=== PATIENT | male | born 1960 | race Caucasian/White ===

== ENCOUNTER 2018-01-20 21:18 | Inpatient (IN) | payer MEDICAID ==
[~2018-01-20] VITALS: Ht 167.6 cm; Wt 101.6 kg
[~2018-01-20 21:18] MED LIST: BISACODYL; FURO-152 PO; SPIRONOLACTONE
[2018-01-20] MEDS ORDERED: FUROSEMIDE 20MG/2ML VIAL IVP ONE (21:45)
[2018-01-20 23:19] LABS: BASOPHILS % 0.4 % (0.0-2.0); EOSINOPHILS % 1.1 % (0.0-5.0); HEMATOCRIT. 37.3 % (42.0-52.0); HEMOGLOBIN. 13.1 g/dL (14.0-18.0); LYMPHOCYTES % 39.2 % (20.0-50.0); MEAN CORPUSCULAR HEMOGLOBIN 34.7 pg (28.0-32.0); MEAN CORPUSCULAR VOLUME 98.4 fL (80.0-94.0); MEAN PLATELET VOLUME 8.1 fl (7.4-10.4); NEUTROPHILS % 48.3 % (40.0-76.0); RED BLOOD CELL COUNT 3.79 mill/uL (4.7-6.1); RED CELL DISTRIBUTION WIDTH 15.4 % (11.6-14.6)
[2018-01-20 23:21] LABS: CHLORIDE 108 mEq/L (98-107)
[2018-01-20 23:25] LABS: INR 1.9
[2018-01-20 23:26] LABS: PLATELET 35 x1000/uL (130-400)
[2018-01-20] MEDS ORDERED: NA PHOS,M-B/NA PHOS,DI-BA ENEMA 118ML PR PRN (23:45)
[2018-01-20] MEDS ORDERED: LORAZEPAM 2MG/ML CPJ IV PRN (23:45)
[2018-01-20] MEDS ORDERED: DIPHENHYDRAMINE 50MG/ML VIAL IV PRN (23:45)
[2018-01-20] MEDS ORDERED: IPRATROPIUM/ALBUTEROL 0.5-3(2.5)MG/3ML NEB INH PRN (23:45)
[2018-01-20] MEDS ORDERED: MAGNESIUM/ALUMINUM HYDROXIDE/SIMETHICONE 30ML UDC PO PRN (23:45)
[2018-01-20] MEDS ORDERED: ONDANSETRON HCL 4MG/2ML VIAL IV PRN (23:45)
[2018-01-20] MEDS ORDERED: CLONIDINE 0.1MG TABLET PO PRN (23:45)
[2018-01-20] MEDS ORDERED: DOCUSATE SODIUM 100MG CAPSULE PO PRN (23:45)
[2018-01-20] MEDS ORDERED: HYDROCODONE/ACETAMINOPHEN 5/325MG TABLET PO PRN (23:45)
[2018-01-20] MEDS ORDERED: ACETAMINOPHEN 650MG SUPP PR PRN (23:45)
[2018-01-20] MEDS ORDERED: GUAIFENESIN 200MG/10ML SUGAR FREE UDC PO PRN (23:45)
[2018-01-20] MEDS ORDERED: ACETAMINOPHEN 325MG TABLET PO PRN (23:45)
[2018-01-20] MEDS ORDERED: ACETAMINOPHEN 650MG/20.3ML UDC GT PRN (23:45)
[2018-01-21] VITALS (7 sets, daily range): BP systolic 111–155; BP diastolic 72–95
[2018-01-21] MEDS ORDERED: POTASSIUM CHLORIDE INJ 40 MEQ in DEXT 5% WATER 500 ML IV NR ×2
[2018-01-21] MEDS ORDERED: POTASSIUM CHLORIDE 20MEQ TABLET SR PO ONE
[2018-01-21] MEDS ORDERED: ALBUTEROL (0.083%) 2.5MG/3ML NEB HHN SCH
[2018-01-21] MEDS: HYDROCODONE/ACETAMINOPHEN 10/325MG TABLET PO PRN (01:33)
[2018-01-21] MEDS ORDERED: TAMS-11 PO (02:08)
[2018-01-21] MEDS ORDERED: SPIR25TA PO (02:08)
[2018-01-21 04:27] LABS: CLARITY URINE CLEAR (CLEAR); COLOR URINE YELLOW (YELLOW); KETONES URINE NEGATIVE (NEGATIVE); LEUKOCYTE ESTERASE URINE NEGATIVE (NEGATIVE); NITRITE URINE NEGATIVE (NEGATIVE); OCCULT BLOOD URINE 2+ (NEGATIVE); PH URINE 7.5 (4.5-8.0); PROTEIN URINE NEGATIVE (NEGATIVE); SPECIFIC GRAVITY URINE 1.007 (1.005-1.030)
[2018-01-21] MEDS: SODIUM CHLORIDE 0.9% INJ 3ML FLUSH IVF SCH ×3 (05:33→21:25)
[2018-01-21 05:45] LABS: *AMPHETAMINES SCREEN URINE NEGATIVE (NEGATIVE); *BARBITURATES SCREEN URINE NEGATIVE (NEGATIVE)
[2018-01-21 05:46] LABS: *BENZODIAZEPINES SCREEN URINE NEGATIVE (NEGATIVE); *COCAINE SCREEN URINE NEGATIVE (NEGATIVE); METHADONE URINE SCREEN NEGATIVE (NEGATIVE); OPIATES URINE SCREEN PRESUMTIVE POSITIVE (NEGATIVE)
[2018-01-21 05:47] LABS: CANNABINOID URINE SCREEN NEGATIVE (NEGATIVE); PHENCYCLIDINE URINE SCREEN NEGATIVE (NEGATIVE)
[2018-01-21 07:15] LABS: BASOPHILS % 0.6 % (0.0-2.0); EOSINOPHILS % 3.9 % (0.0-5.0); HEMATOCRIT. 33.1 % (42.0-52.0); HEMOGLOBIN. 11.9 g/dL (14.0-18.0); LYMPHOCYTES % 49.4 % (20.0-50.0); MEAN CORPUSCULAR HEMOGLOBIN 35.3 pg (28.0-32.0); MEAN PLATELET VOLUME 7.4 fl (7.4-10.4); MONOCYTES % 11.8 % (2.0-8.0); NEUTROPHILS % 34.3 % (40.0-76.0); RED BLOOD CELL COUNT 3.38 mill/uL (4.7-6.1)
[2018-01-21 07:27] LABS: CHLORIDE 108 mEq/L (98-107)
[2018-01-21 07:51] LABS: LDL CHOLESTEROL 53 mg/dL (5-100)
[2018-01-21 07:53] LABS: HDL CHOLESTEROL 21 mg/dL (40-59)
[2018-01-21] MEDS: IPRATROPIUM/ALBUTEROL 0.5-3(2.5)MG/3ML NEB INH SCH ×3 (08:26→21:20)
[2018-01-21 08:40] LABS: PLATELET 27 x1000/uL (130-400)
[2018-01-21] MEDS ORDERED: FAMOTIDINE 20MG/2ML VIAL IV SCH (09:00)
[2018-01-21] MEDS: FUROSEMIDE 40MG/4ML VIAL IV SCH (09:23)
[2018-01-21] MEDS: POTASSIUM CHLORIDE 20MEQ TABLET SR PO PRN (09:24)
[2018-01-21] MEDS: THIAMINE HCL 100MG TABLET PO SCH (09:24)
[2018-01-21] MEDS: FOLIC ACID 1MG TABLET PO SCH (09:24)
[2018-01-21] MEDS ORDERED: PNEUMOCOCCAL 23-VAL P-SAC VAC 0.5 ML IM ONE (10:00)
[2018-01-21 10:35] LABS: BG BASE EXCESS -1.8 mmol/L (-2.0-2.0); BG CARBOXYHEMOGLOBIN 1.2 % (0.5-1.5); BG DEOXYHEMOGLOBIN 6.3 % (0.0-5.0); BG HCO3 ACT 21.9 mmol/L (22.0-26.0); BG METHEMOGLOBIN 0.3 % (0.0-1.5); BG OXYGEN SATURATION 93.6 % (92.0-98.5); BG OXYHEMOGLOBIN 92.2 % (94.0-97.0); BG PCO2 34.2 mmHg (35.0-45.0); BG PH 7.424 (7.350-7.450); BG PO2 73.5 mmHg (75.0-100.0); BG SAMPLE SITE LEFT RADIAL; BG TOTAL HEMOGLOBIN 13.3 g/dL (12.0-18.0); BG VENT MODE NASAL CANNULA
[2018-01-21 12:37] LABS: PROTHROMBIN TIME 19.9 sec (9.1-11.1)
[2018-01-21] MEDS ORDERED: PHYTONADIONE 10MG/ML AMP SUBCUT NR (16:00)
[2018-01-21] MEDS ORDERED: FUROSEMIDE 40MG/4ML VIAL IVP NR (16:00)
[2018-01-21] MEDS: PANTOPRAZOLE SODIUM 40 MG/VIAL IV SCH (17:06)
[2018-01-21 19:57] LABS: HEPATITIS B SURFACE ANTIGEN NEGATIVE
[2018-01-21 20:25] LABS: HEPATITIS B CORE AB IGM NEGATIVE
[2018-01-21 20:26] LABS: HEPATITIS A AB IGM NEGATIVE (NEGATIVE)
[2018-01-22] VITALS (10 sets, daily range): BP systolic 108–148; BP diastolic 58–83
[2018-01-22] MEDS: IPRATROPIUM/ALBUTEROL 0.5-3(2.5)MG/3ML NEB INH SCH ×4 (02:49→20:27)
[2018-01-22] MEDS: SODIUM CHLORIDE 0.9% INJ 3ML FLUSH IVF SCH ×2 (05:35→14:24)
[2018-01-22] MEDS: THIAMINE HCL 100MG TABLET PO SCH (07:52)
[2018-01-22] MEDS: FOLIC ACID 1MG TABLET PO SCH (07:52)
[2018-01-22] MEDS: HYDROCODONE/ACETAMINOPHEN 10/325MG TABLET PO PRN (08:21)
[2018-01-22] MEDS: PANTOPRAZOLE SODIUM 40 MG/VIAL IV SCH (08:21)
[2018-01-22] MEDS: FUROSEMIDE 40MG/4ML VIAL IV SCH (08:21)
[2018-01-22] MEDS ORDERED: FUROSEMIDE 40MG/4ML VIAL IVP SCH (09:00)
[2018-01-22 10:36] LABS: HEMATOCRIT 35.5 % (42.0-52.0); HEMOGLOBIN 12.6 g/dL (14.0-18.0); MEAN CORPUSCULAR HEMOGLOBIN 35.1 pg (28.0-32.0); MEAN CORPUSCULAR VOLUME 98.9 fL (80.0-94.0); RED BLOOD CELL COUNT 3.59 mill/uL (4.7-6.1); RED CELL DISTRIBUTION WIDTH 15.1 % (11.6-14.6)
[2018-01-22 10:41] LABS: PLATELET 26 x1000/uL (130-400)
[2018-01-22 10:44] LABS: INR 2.1; PROTHROMBIN TIME 20.6 sec (9.1-11.1)
[2018-01-22 10:52] LABS: CHLORIDE 102 mEq/L (98-107)
[2018-01-22] MEDS: PIPERACILLIN/TAZ 3.375G PREMIX 50 ML IV SCH ×2 (16:17→20:13)
[2018-01-22 20:16] LABS: AMMONIA 150 uMol/L (<32)
[2018-01-23] VITALS: BP 108/71
[2018-01-23] MEDS: SODIUM CHLORIDE 0.9% INJ 3ML FLUSH IVF SCH ×3 (00:01→14:00)
[2018-01-23 00:29] LABS: HEMATOCRIT 34.7 % (42.0-52.0); HEMOGLOBIN 12.2 g/dL (14.0-18.0)
[2018-01-23 00:56] LABS: PROTHROMBIN TIME 19.9 sec (9.1-11.1)
[2018-01-23] MEDS: IPRATROPIUM/ALBUTEROL 0.5-3(2.5)MG/3ML NEB INH SCH ×3 (01:01→14:30)
[2018-01-23 04:00] VITALS: BP 104/74
[2018-01-23] MEDS: POTASSIUM CHLORIDE 20MEQ TABLET SR PO PRN (04:40)
[2018-01-23] MEDS: HYDROCODONE/ACETAMINOPHEN 10/325MG TABLET PO PRN (04:40)
[2018-01-23] MEDS: PIPERACILLIN/TAZ 3.375G PREMIX 50 ML IV SCH ×3 (06:01→15:05)
[2018-01-23 08:00] VITALS: BP 107/60
[2018-01-23] MEDS: FUROSEMIDE 40MG/4ML VIAL IV SCH (08:55)
[2018-01-23] MEDS: THIAMINE HCL 100MG TABLET PO SCH (08:55)
[2018-01-23] MEDS: FOLIC ACID 1MG TABLET PO SCH (08:55)
[2018-01-23] MEDS: PANTOPRAZOLE SODIUM 40 MG/VIAL IV SCH (08:55)
[2018-01-23 12:00] VITALS: BP 107/56
[2018-01-23 16:00] VITALS: BP 115/63
[2018-01-23 17:51] VITALS: BP 120/66
[2018-01-23] MEDS ORDERED: LACTULOSE 20G/30ML UDC PO SCH (22:00)
== END 2018-01-23 19:56 | disposition home or self-care (01) | DRG 816 ==
LOC: ER 21:18 → 5WST 23:35 → ENRESERV 23:51 → EDBEDREQ 23:58
PROVIDERS: ADMIT Family Medicine; ATTEND Family Medicine
PROC: 30233R1 Transfusion of Nonautologous Platelets into Peripheral Vein, Percutaneous Approach (ICD-10-PCS; principal; 2018-01-22)
DX: T51.0X1A Toxic effect of ethanol, accidental (unintentional), initial encounter (principal); J96.00 Acute respiratory failure, unspecified whether with hypoxia or hypercapnia; E43 Unspecified severe protein-calorie malnutrition; I50.33 Acute on chronic diastolic (congestive) heart failure; D61.818 Other pancytopenia; K83.0 Cholangitis; D68.9 Coagulation defect, unspecified; K29.20 Alcoholic gastritis without bleeding; D69.6 Thrombocytopenia, unspecified; E83.51 Hypocalcemia; E87.8 Other disorders of electrolyte and fluid balance, not elsewhere classified; I11.0 Hypertensive heart disease with heart failure; K76.6 Portal hypertension; R16.1 Splenomegaly, not elsewhere classified; K70.9 Alcoholic liver disease, unspecified; E87.6 Hypokalemia; F17.210 Nicotine dependence, cigarettes, uncomplicated; E78.5 Hyperlipidemia, unspecified; Z60.2 Problems related to living alone; I85.00 Esophageal varices without bleeding; R73.9 Hyperglycemia, unspecified; R74.0 Nonspecific elevation of levels of transaminase and lactic acid dehydrogenase [LDH]; K80.61 Calculus of gallbladder and bile duct with cholecystitis, unspecified, with obstruction; K70.30 Alcoholic cirrhosis of liver without ascites; Z68.36 Body mass index [BMI] 36.0-36.9, adult; Z79.899 Other long term (current) drug therapy; Y92.89 Other specified places as the place of occurrence of the external cause
CPT/HCPCS: 36415; 36600; 70551; 71045; 71250; 74181; 76700; 80053; 80061; 80076; 80305; 81003; 82140; 82375; 82805; 83690; 83880; 84484; 85014; 85018; 85025; 85027; 85049; 85384; 85610; 86705; 86709; 86803; 86850; 86900; 87040; 87340; 90732; 93005; 93306; 94640; 96374; 99285; C9113; G0482; J1940; J2405; J2543; J3430; J3480; J3490; J7050; J7060; J7620; P9034

== ENCOUNTER 2018-05-04 15:43 | Inpatient (IN) | payer OTHER, MEDICAID ==
[~2018-05-04] VITALS: Ht 165.1 cm; Wt 107.0 kg
[~2018-05-04 15:43] MED LIST changes: -BISACODYL; +SPIR25TA PO; -SPIRONOLACTONE; +TAMS-11 PO
[2018-05-04 16:53] LABS: HEMATOCRIT. 41.9 % (42.0-52.0); HEMOGLOBIN. 14.4 g/dL (14.0-18.0); MEAN CORPUSCULAR HEMOGLOBIN 34.4 pg (28.0-32.0); MEAN CORPUSCULAR VOLUME 100.6 fL (80.0-94.0); MEAN PLATELET VOLUME 8.7 fl (7.4-10.4); RED BLOOD CELL COUNT 4.17 mill/uL (4.7-6.1); RED CELL DISTRIBUTION WIDTH 17.5 % (11.6-14.6)
[2018-05-04 16:56] LABS: PLATELET 26 x1000/uL (130-400)
[2018-05-04 17:00] LABS: CHLORIDE 92 mEq/L (98-107)
[2018-05-04] MEDS ORDERED: FENTANYL CITRATE/PF 50MCG/ML 2ML VIAL IV ONE (18:00)
[2018-05-04] MEDS ORDERED: ONDANSETRON HCL 4MG/2ML INJ IV ONE (18:00)
[2018-05-04 18:27] LABS: NUCLEATED RED BLOOD CELLS 1 /100 WBC
[2018-05-04 18:28] LABS: PLATELET ESTIMATE MARKEDLY DECREASED
[2018-05-04 19:15] LABS: CLARITY URINE TURBID (CLEAR); COLOR URINE ORANGE (YELLOW); KETONES URINE NEGATIVE (NEGATIVE); LEUKOCYTE ESTERASE URINE 2+ (NEGATIVE); NITRITE URINE POSITIVE (NEGATIVE); OCCULT BLOOD URINE 2+ (NEGATIVE); PROTEIN URINE TRACE (NEGATIVE); SPECIFIC GRAVITY URINE 1.021 (1.005-1.030)
[2018-05-04] MEDS ORDERED: LEVOFLOXACIN 750MG PREMIX 150 ML IV NR (19:15)
[2018-05-05] VITALS (16 sets, daily range): BP systolic 59–117; BP diastolic 40–68
[2018-05-05] MEDS ORDERED: MAGNESIUM/ALUMINUM HYDROXIDE/SIMETHICONE 30ML UDC PO PRN (00:15)
[2018-05-05] MEDS ORDERED: MVI, ADULT NO.1 10 ML, FOLIC ACID 1 MG, THIAMINE HCL 100 MG in SODIUM CHLORIDE 0.9% 1,0... IV SCH ×4 (04:00)
[2018-05-05] MEDS: LACTULOSE 20G/30ML UDC PO SCH ×3 (06:41→21:42)
[2018-05-05] MEDS ORDERED: FUROSEMIDE 40MG/4ML VIAL IVP SCH (10:15)
[2018-05-05] MEDS ORDERED: LORAZEPAM 2MG/ML CPJ IV NR (11:30)
[2018-05-05] MEDS ORDERED: CHLORDIAZEPOXIDE 25MG CAPSULE PO PRN (12:00)
[2018-05-05] MEDS ORDERED: VANCOMYCIN 1 G PREMIX 200 ML IV SCH (12:00)
[2018-05-05] MEDS: MIDODRINE HCL 2.5MG TABLET PO SCH ×2 (13:00→17:40)
[2018-05-05] MEDS ORDERED: VANCOMYCIN 2,000 MG in DEXT 5% WATER 500 ML IV SCH (14:00)
[2018-05-05] MEDS ORDERED: CEFTRIAXONE 1 G PREMIX 50 ML IV SCH (14:00)
[2018-05-05] MEDS: MVI, ADULT NO.1 10 ML, FOLIC ACID 1 MG, THIAMINE HCL 100 MG in DEXT 5%/0.9% NACL 1,000 ML IV SCH ×4 (14:07)
[2018-05-05] MEDS: CEFTRIAXONE 1 G PREMIX 50 ML IV SCH (17:42)
[2018-05-06] VITALS (23 sets, daily range): BP systolic 94–116; BP diastolic 49–76
[2018-05-06] MEDS: LACTULOSE 20G/30ML UDC PO SCH ×3 (05:39→21:54)
[2018-05-06 06:45] LABS: HEMATOCRIT. 40.8 % (42.0-52.0); MEAN CORPUSCULAR HEMOGLOBIN 34.3 pg (28.0-32.0); MEAN CORPUSCULAR VOLUME 99.7 fL (80.0-94.0)
[2018-05-06 06:48] LABS: CHLORIDE 96 mEq/L (98-107)
[2018-05-06 06:54] LABS: PHOSPHORUS 2.2 mg/dL (2.5-4.9)
[2018-05-06] MEDS: MIDODRINE HCL 2.5MG TABLET PO SCH ×3 (08:51→17:54)
[2018-05-06] MEDS ORDERED: VANCOMYCIN 1250MG in DEXTROSE 5% WATER 250ML IV NR (10:00)
[2018-05-06 10:50] LABS: PLATELET 27 x1000/uL (130-400); PLATELET ESTIMATE MARKEDLY DECREASED
[2018-05-06] MEDS ORDERED: POTASSIUM PHOS,M-BASIC-D-BASIC 20 MMOL in SODIUM CHLORIDE 0.9% 250 ML IV SCH (13:30)
[2018-05-06] MEDS ORDERED: CALCIUM GLUCONATE 1,000 MG in DEXTROSE 5% WATER 50 ML IV SCH (13:30)
[2018-05-06] MEDS: MVI, ADULT NO.1 10 ML, FOLIC ACID 1 MG, THIAMINE HCL 100 MG in DEXT 5%/0.9% NACL 1,000 ML IV SCH ×4 (15:05)
[2018-05-06] MEDS: ERGOCALCIFEROL 50000UNITS CAPSULE PO SCH (15:08)
[2018-05-06] MEDS: CEFTRIAXONE 1 G PREMIX 50 ML IV SCH (17:53)
[2018-05-06] MEDS ORDERED: CHLORDIAZEPOXIDE 25MG CAPSULE PO PRN (20:00)
[2018-05-07] VITALS (26 sets, daily range): BP systolic 99–132; BP diastolic 60–95
[2018-05-07] MEDS: LACTULOSE 20G/30ML UDC PO SCH ×4 (06:08→23:34)
[2018-05-07 06:25] LABS: HEMOGLOBIN. 12.3 g/dL (14.0-18.0); MEAN CORPUSCULAR HEMOGLOBIN 34.7 pg (28.0-32.0); MEAN CORPUSCULAR VOLUME 98.9 fL (80.0-94.0); MEAN PLATELET VOLUME 8.7 fl (7.4-10.4); RED BLOOD CELL COUNT 3.54 mill/uL (4.7-6.1); RED CELL DISTRIBUTION WIDTH 16.9 % (11.6-14.6)
[2018-05-07 06:27] LABS: CHLORIDE 99 mEq/L (98-107)
[2018-05-07 06:33] LABS: INR 2.2; PROTHROMBIN TIME 22.1 sec (9.1-11.1)
[2018-05-07 06:36] LABS: PHOSPHORUS 3.7 mg/dL (2.5-4.9)
[2018-05-07 06:51] LABS: PLATELET 44 x1000/uL (130-400)
[2018-05-07] MEDS ORDERED: PHYTONADIONE 10MG/ML AMP SUBCUT NR (09:15)
[2018-05-07] MEDS: MIDODRINE HCL 2.5MG TABLET PO SCH ×3 (09:43→17:26)
[2018-05-07] MEDS ORDERED: MVI, ADULT NO.1 10 ML, FOLIC ACID 1 MG, THIAMINE HCL 100 MG in DEXT 5%/0.9% NACL 1,000 ML IV SCH ×4 (10:00)
[2018-05-07] MEDS ORDERED: CALCIUM GLUCONATE 1,000 MG in SODIUM CHLORIDE 0.9% 100 ML IV NR (11:00)
[2018-05-07] MEDS ORDERED: CHLORDIAZEPOXIDE 25MG CAPSULE PO PRN (12:00)
[2018-05-07] MEDS: MVI, ADULT NO.1 10 ML, FOLIC ACID 1 MG, THIAMINE HCL 100 MG in DEXT 5%/0.9% NACL 1,000 ML IV SCH ×4 (13:39)
[2018-05-07 14:11] LABS: PLATELET ESTIMATE MARKEDLY DECREASED
[2018-05-07] MEDS: CALCIUM CARBONATE 1250MG TABLET (500MG ELEMENTAL CALCIUM) PO SCH (17:26)
[2018-05-07] MEDS: CEFTRIAXONE 1 G PREMIX 50 ML IV SCH (17:26)
[2018-05-08] VITALS (16 sets, daily range): BP systolic 105–136; BP diastolic 60–88
[2018-05-08] MEDS: LACTULOSE 20G/30ML UDC PO SCH ×5 (06:00→23:25)
[2018-05-08 06:47] LABS: CHLORIDE 101 mEq/L (98-107)
[2018-05-08 06:50] LABS: HEMATOCRIT. 34.7 % (42.0-52.0); HEMOGLOBIN. 12.2 g/dL (14.0-18.0); MEAN CORPUSCULAR HEMOGLOBIN 35.1 pg (28.0-32.0); MEAN CORPUSCULAR VOLUME 99.8 fL (80.0-94.0); MEAN PLATELET VOLUME 8.8 fl (7.4-10.4); RED BLOOD CELL COUNT 3.48 mill/uL (4.7-6.1); RED CELL DISTRIBUTION WIDTH 17.6 % (11.6-14.6)
[2018-05-08 06:52] LABS: PHOSPHORUS 4.2 mg/dL (2.5-4.9)
[2018-05-08 07:14] LABS: PLATELET 48 x1000/uL (130-400)
[2018-05-08] MEDS ORDERED: POTASSIUM CHLORIDE 20MEQ/PACKET PO NR (07:45)
[2018-05-08 08:09] LABS: PARTIAL THROMBOPLASTIN TIME 37.6 sec (23.4-31.0); PROTHROMBIN TIME 19.7 sec (9.1-11.1)
[2018-05-08] MEDS: MIDODRINE HCL 2.5MG TABLET PO SCH ×3 (10:39→17:11)
[2018-05-08] MEDS: CALCIUM CARBONATE 1250MG TABLET (500MG ELEMENTAL CALCIUM) PO SCH ×2 (10:40→17:11)
[2018-05-08] MEDS ORDERED: VANCOMYCIN 1250MG in DEXTROSE 5% WATER 250ML IV SCH (12:00)
[2018-05-08] MEDS: MVI, ADULT NO.1 10 ML, FOLIC ACID 1 MG, THIAMINE HCL 100 MG in DEXT 5%/0.9% NACL 1,000 ML IV SCH ×4 (14:00)
[2018-05-08 15:43] LABS: PLATELET ESTIMATE MARKEDLY DECREASED
[2018-05-08] MEDS: CEFTRIAXONE 1 G PREMIX 50 ML IV SCH (17:11)
[2018-05-08] MEDS ORDERED: HYDROMORPHONE HCL/PF 2MG/ML CPJ IV PRN (19:45)
[2018-05-08] MEDS: ONDANSETRON HCL 4MG/2ML INJ IV PRN (20:18)
[2018-05-08] MEDS: DIPHENHYDRAMINE 50MG/ML VIAL IV PRN (20:39)
[2018-05-08 21:42] LABS: BG BASE EXCESS 0.6 mmol/L (-2.0-2.0); BG CARBOXYHEMOGLOBIN 2.1 % (0.5-1.5); BG DEOXYHEMOGLOBIN 5.1 % (0.0-5.0); BG FRACTION INSPIRED OXYGEN 28; BG HCO3 ACT 26.4 mmol/L (22.0-26.0); BG METHEMOGLOBIN 0.3 % (0.0-1.5); BG OXYGEN SATURATION 94.8 % (92.0-98.5); BG OXYHEMOGLOBIN 92.5 % (94.0-97.0); BG PCO2 47.2 mmHg (35.0-45.0); BG PH 7.365 (7.350-7.450); BG PO2 81.4 mmHg (75.0-100.0); BG SAMPLE SITE RIGHT RADIAL; BG TOTAL HEMOGLOBIN 12.4 g/dL (12.0-18.0); BG VENT MODE NASAL CANNULA
[2018-05-09] VITALS (17 sets, daily range): BP systolic 94–133; BP diastolic 56–88
[2018-05-09] MEDS: LACTULOSE 20G/30ML UDC PO SCH ×3 (05:06→17:40)
[2018-05-09 08:16] LABS: CHLORIDE 104 mEq/L (98-107)
[2018-05-09 08:22] LABS: HEMATOCRIT. 35.8 % (42.0-52.0); HEMOGLOBIN. 12.2 g/dL (14.0-18.0); MEAN CORPUSCULAR HEMOGLOBIN 34.7 pg (28.0-32.0); MEAN CORPUSCULAR VOLUME 101.5 fL (80.0-94.0); MEAN PLATELET VOLUME 8.4 fl (7.4-10.4); PLATELET 53 x1000/uL (130-400); RED BLOOD CELL COUNT 3.53 mill/uL (4.7-6.1); RED CELL DISTRIBUTION WIDTH 17.9 % (11.6-14.6)
[2018-05-09 08:27] LABS: PHOSPHORUS 6.2 mg/dL (2.5-4.9)
[2018-05-09] MEDS: MIDODRINE HCL 2.5MG TABLET PO SCH ×3 (09:46→17:41)
[2018-05-09] MEDS: CALCIUM CARBONATE 1250MG TABLET (500MG ELEMENTAL CALCIUM) PO SCH (09:46)
[2018-05-09] MEDS: PROPRANOLOL HCL 10MG TABLET PO SCH ×2 (09:46→21:00)
[2018-05-09 10:21] LABS: PROTHROMBIN TIME 19.7 sec (9.1-11.1)
[2018-05-09 10:22] LABS: PLATELET ESTIMATE DECREASED
[2018-05-09] MEDS ORDERED: LIDOCAINE HCL 1% 20ML VIAL (Pyxis) INJ ONE (13:35)
[2018-05-09] MEDS ORDERED: SODIUM BICARBONATE 4% (2.4MEQ) 5ML VIAL IV ONE (13:35)
[2018-05-09] MEDS: CEFTRIAXONE 1 G PREMIX 50 ML IV SCH (17:40)
[2018-05-09] MEDS: MVI, ADULT NO.1 10 ML, FOLIC ACID 1 MG, THIAMINE HCL 100 MG in DEXT 5%/0.9% NACL 1,000 ML IV SCH ×4 (17:41)
[2018-05-10] VITALS (15 sets, daily range): BP systolic 88–134; BP diastolic 47–97
[2018-05-10 05:51] LABS: CHLORIDE 103 mEq/L (98-107)
[2018-05-10 06:00] LABS: PHOSPHORUS 7.4 mg/dL (2.5-4.9)
[2018-05-10 06:16] LABS: HEMATOCRIT. 40.8 % (42.0-52.0); MEAN CORPUSCULAR HEMOGLOBIN 34.7 pg (28.0-32.0); MEAN CORPUSCULAR VOLUME 101.3 fL (80.0-94.0); MEAN PLATELET VOLUME 8.5 fl (7.4-10.4); PLATELET 63 x1000/uL (130-400); RED BLOOD CELL COUNT 4.03 mill/uL (4.7-6.1); RED CELL DISTRIBUTION WIDTH 18.2 % (11.6-14.6)
[2018-05-10] MEDS: LACTULOSE 20G/30ML UDC PO SCH ×4 (06:42→17:44)
[2018-05-10] MEDS: ONDANSETRON HCL 4MG/2ML INJ IV PRN (09:05)
[2018-05-10] MEDS ORDERED: SODIUM CHLORIDE 0.9% 500 ML IV SCH (09:15)
[2018-05-10] MEDS: CALCIUM CARBONATE 1250MG TABLET (500MG ELEMENTAL CALCIUM) PO SCH (09:16)
[2018-05-10 09:42] LABS: PLATELET ESTIMATE DECREASED
[2018-05-10] MEDS ORDERED: ALBUMIN HUMAN 25GM/500ML (5%) IV SCH (10:30)
[2018-05-10] MEDS ORDERED: VANCOMYCIN 1250MG in DEXTROSE 5% WATER 250ML IV NR (12:00)
[2018-05-10] MEDS: MIDODRINE HCL 5MG TABLET PO SCH ×2 (13:26→21:32)
[2018-05-10] MEDS: CEFTRIAXONE 1 G PREMIX 50 ML IV SCH (17:44)
[2018-05-11] VITALS (25 sets, daily range): BP systolic 89–122; BP diastolic 38–79
[2018-05-11] MEDS: MVI, ADULT NO.1 10 ML, FOLIC ACID 1 MG, THIAMINE HCL 100 MG in DEXT 5%/0.9% NACL 1,000 ML IV SCH ×8 (00:13→13:56)
[2018-05-11] MEDS: LACTULOSE 20G/30ML UDC PO SCH ×4 (00:14→18:16)
[2018-05-11] MEDS: ONDANSETRON HCL 4MG/2ML INJ IV PRN (03:41)
[2018-05-11] MEDS: MIDODRINE HCL 5MG TABLET PO SCH ×3 (06:21→23:10)
[2018-05-11 07:42] LABS: HEMATOCRIT. 37.7 % (42.0-52.0); HEMOGLOBIN. 13.2 g/dL (14.0-18.0); MEAN CORPUSCULAR HEMOGLOBIN 35.1 pg (28.0-32.0); MEAN CORPUSCULAR VOLUME 100.6 fL (80.0-94.0); RED BLOOD CELL COUNT 3.75 mill/uL (4.7-6.1); RED CELL DISTRIBUTION WIDTH 18.2 % (11.6-14.6)
[2018-05-11 07:55] LABS: CHLORIDE 99 mEq/L (98-107)
[2018-05-11] MEDS: CALCIUM CARBONATE 1250MG TABLET (500MG ELEMENTAL CALCIUM) PO SCH (07:58)
[2018-05-11 08:04] LABS: PHOSPHORUS 7.6 mg/dL (2.5-4.9)
[2018-05-11 09:11] LABS: NUCLEATED RED BLOOD CELLS 1 /100 WBC; PLATELET ESTIMATE DECREASED
[2018-05-11 09:12] LABS: MEAN PLATELET VOLUME 8.3 fl (7.4-10.4); PLATELET 69 x1000/uL (130-400)
[2018-05-11] MEDS ORDERED: LIDOCAINE HCL 1% 20ML VIAL (Pyxis) INJ ONE (10:54)
[2018-05-11] MEDS ORDERED: SODIUM BICARBONATE 4% (2.4MEQ) 5ML VIAL IV ONE (10:54)
[2018-05-11] MEDS: CALCIUM ACETATE 667MG CAPSULE PO SCH ×2 (12:18→18:16)
[2018-05-11] MEDS: SIMETHICONE 80MG TABLET CHEW PO SCH ×2 (18:16→21:11)
[2018-05-11] MEDS: CEFTRIAXONE 1 G PREMIX 50 ML IV SCH (21:01)
[2018-05-12] VITALS (11 sets, daily range): BP systolic 92–123; BP diastolic 48–80
[2018-05-12] MEDS: LACTULOSE 20G/30ML UDC PO SCH ×4 (00:23→17:54)
[2018-05-12] MEDS: MIDODRINE HCL 5MG TABLET PO SCH ×3 (06:08→22:20)
[2018-05-12] MEDS: MVI, ADULT NO.1 10 ML, FOLIC ACID 1 MG, THIAMINE HCL 100 MG in DEXT 5%/0.9% NACL 1,000 ML IV SCH ×8 (06:08→17:30)
[2018-05-12 06:33] LABS: HEMATOCRIT. 37.8 % (42.0-52.0); MEAN CORPUSCULAR HEMOGLOBIN 34.8 pg (28.0-32.0); MEAN CORPUSCULAR VOLUME 100.8 fL (80.0-94.0); PLATELET 59 x1000/uL (130-400); RED BLOOD CELL COUNT 3.75 mill/uL (4.7-6.1); RED CELL DISTRIBUTION WIDTH 18.6 % (11.6-14.6)
[2018-05-12 06:58] LABS: PHOSPHORUS 6.6 mg/dL (2.5-4.9)
[2018-05-12] MEDS: SIMETHICONE 80MG TABLET CHEW PO SCH ×3 (08:00→22:21)
[2018-05-12] MEDS: CALCIUM ACETATE 667MG CAPSULE PO SCH (08:00)
[2018-05-12 10:13] LABS: PLATELET ESTIMATE MARKEDLY DECREASED
[2018-05-12] MEDS: CALCIUM CARBONATE 1250MG TABLET (500MG ELEMENTAL CALCIUM) PO SCH (17:29)
[2018-05-12] MEDS ORDERED: VANCOMYCIN 1250MG in DEXTROSE 5% WATER 250ML IV SCH (18:00)
[2018-05-12 20:38] LABS: INR 2.7; PARTIAL THROMBOPLASTIN TIME 51.3 sec (23.4-31.0); PROTHROMBIN TIME 26.7 sec (9.1-11.1)
[2018-05-12] MEDS: CEFTRIAXONE 1 G PREMIX 50 ML IV SCH (20:46)
[2018-05-12] MEDS: TAMSULOSIN HCL 0.4MG SR CAPSULE PO SCH (22:21)
[2018-05-12] MEDS ORDERED: PHYTONADIONE 10MG/ML AMP SUBCUT NR (23:30)
[2018-05-13] VITALS (14 sets, daily range): BP systolic 94–110; BP diastolic 47–76
[2018-05-13] MEDS: MIDODRINE HCL 5MG TABLET PO SCH ×3 (06:00→22:19)
[2018-05-13] MEDS: LACTULOSE 20G/30ML UDC PO SCH ×5 (06:00→20:48)
[2018-05-13] MEDS: SIMETHICONE 80MG TABLET CHEW PO SCH ×4 (08:10→20:49)
[2018-05-13] MEDS: CALCIUM CARBONATE 1250MG TABLET (500MG ELEMENTAL CALCIUM) PO SCH ×3 (08:10→18:49)
[2018-05-13 09:02] LABS: HEMATOCRIT. 38.3 % (42.0-52.0); MEAN CORPUSCULAR HEMOGLOBIN 34.3 pg (28.0-32.0); MEAN CORPUSCULAR VOLUME 101.3 fL (80.0-94.0); RED BLOOD CELL COUNT 3.78 mill/uL (4.7-6.1); RED CELL DISTRIBUTION WIDTH 18.8 % (11.6-14.6)
[2018-05-13 09:05] LABS: INR 2.8; PARTIAL THROMBOPLASTIN TIME 55.9 sec (23.4-31.0); PROTHROMBIN TIME 27.4 sec (9.1-11.1)
[2018-05-13 10:59] LABS: PLATELET ESTIMATE DECREASED
[2018-05-13 11:00] LABS: MEAN PLATELET VOLUME 8.3 fl (7.4-10.4); PLATELET 51 x1000/uL (130-400)
[2018-05-13 11:30] LABS: PHOSPHORUS 6.8 mg/dL (2.5-4.9)
[2018-05-13] MEDS: ERGOCALCIFEROL 50000UNITS CAPSULE PO SCH (14:36)
[2018-05-13 16:11] LABS: INR 2.1; PROTHROMBIN TIME 20.9 sec (9.1-11.1)
[2018-05-13] MEDS: CEFTRIAXONE 1 G PREMIX 50 ML IV SCH (20:48)
[2018-05-13] MEDS: TAMSULOSIN HCL 0.4MG SR CAPSULE PO SCH (20:49)
[2018-05-13 23:33] LABS: HEMATOCRIT 40.6 % (42.0-52.0); HEMOGLOBIN 13.8 g/dL (14.0-18.0)
[2018-05-14] VITALS (39 sets, daily range): BP systolic 63–152; BP diastolic 29–105
[2018-05-14] MEDS ORDERED: HYDROMORPHONE HCL/PF 2MG/ML CPJ IV PRN (00:15)
[2018-05-14] MEDS: LACTULOSE 20G/30ML UDC PO SCH ×4 (02:00→21:50)
[2018-05-14] MEDS: MIDODRINE HCL 5MG TABLET PO SCH ×3 (06:00→17:00)
[2018-05-14 07:03] LABS: HEMATOCRIT. 35.4 % (42.0-52.0); HEMOGLOBIN. 12.1 g/dL (14.0-18.0); MEAN CORPUSCULAR HEMOGLOBIN 34.8 pg (28.0-32.0); MEAN CORPUSCULAR VOLUME 101.8 fL (80.0-94.0); MEAN PLATELET VOLUME 8.6 fl (7.4-10.4); PLATELET 52 x1000/uL (130-400); RED BLOOD CELL COUNT 3.47 mill/uL (4.7-6.1)
[2018-05-14] MEDS: SIMETHICONE 80MG TABLET CHEW PO SCH ×5 (09:51→21:50)
[2018-05-14 10:07] LABS: CHLORIDE 103 mEq/L (98-107)
[2018-05-14 10:20] LABS: PHOSPHORUS 7.4 mg/dL (2.5-4.9)
[2018-05-14] MEDS ORDERED: TRAMADOL 50MG TABLET PO NR (12:30)
[2018-05-14] MEDS: MVI, ADULT NO.1 10 ML, FOLIC ACID 1 MG, THIAMINE HCL 100 MG in DEXT 5%/0.9% NACL 1,000 ML IV SCH ×12 (13:37→20:45)
[2018-05-14] MEDS ORDERED: METOCLOPRAMIDE HCL 10MG/2ML VIAL IV SCH (14:00)
[2018-05-14] MEDS ORDERED: MIDODRINE HCL 5MG TABLET PO NR (14:00)
[2018-05-14] MEDS ORDERED: ALBUMIN HUMAN 12.5G/250ML (5%) IV NR (15:00)
[2018-05-14] MEDS ORDERED: EPINEPHRINE 0.1MG/ML (1:10,000) 10ML SYR ONE ×3 (15:20→15:47)
[2018-05-14] MEDS ORDERED: DOPAMINE 400MG IN DEXT 5% 250ML PREMIX IV ONE (15:43)
[2018-05-14 16:04] LABS: ATYPICAL LYMPHOCYTES 1
[2018-05-14 16:05] LABS: PLATELET ESTIMATE DECREASED
[2018-05-14] MEDS: CALCIUM CARBONATE 1250MG TABLET (500MG ELEMENTAL CALCIUM) PO SCH (17:55)
[2018-05-14 18:26] LABS: BG CARBOXYHEMOGLOBIN 1.9 % (0.5-1.5); BG DEOXYHEMOGLOBIN 3.3 % (0.0-5.0); BG FRACTION INSPIRED OXYGEN 100; BG HCO3 ACT 14.7 mmol/L (22.0-26.0); BG METHEMOGLOBIN 0.3 % (0.0-1.5); BG OXYGEN SATURATION 96.6 % (92.0-98.5); BG OXYHEMOGLOBIN 94.5 % (94.0-97.0); BG PCO2 45.7 mmHg (35.0-45.0); BG PH 7.124 (7.350-7.450); BG PO2 116.2 mmHg (75.0-100.0); BG SAMPLE SITE RIGHT BRACHIAL; BG TIDAL VOLUME(mL) 600 mL; BG TOTAL HEMOGLOBIN 10.4 g/dL (12.0-18.0); BG VENT MODE VENT - A/C; BG VENT RATE 14 set
[2018-05-14] MEDS ORDERED: SODIUM BICARBONATE 8.4% 1 MEQ/ML 50ML SYR IV ONE (18:45)
[2018-05-14 18:48] LABS: HEMOGLOBIN. 10.2 g/dL (14.0-18.0); MEAN CORPUSCULAR HEMOGLOBIN 35.1 pg (28.0-32.0); RED CELL DISTRIBUTION WIDTH 19.2 % (11.6-14.6)
[2018-05-14 18:55] LABS: PLATELET 42 x1000/uL (130-400)
[2018-05-14] MEDS ORDERED: OCTREOTIDE ACETATE 50 MCG/ML 1ML IV ONE ×2 (19:00→19:15)
[2018-05-14] MEDS ORDERED: OCTREOTIDE 50 MCG in SODIUM CHLORIDE 0.9% 50 ML SUBCUT SCH (19:15)
[2018-05-14] MEDS: DOPAMINE 400MG PREMIX 250 ML IV PRN (19:32)
[2018-05-14 19:46] LABS: PLATELET ESTIMATE MARKEDLY DECREASED
[2018-05-14] MEDS: TAMSULOSIN HCL 0.4MG SR CAPSULE PO SCH (21:51)
[2018-05-14] MEDS: METOCLOPRAMIDE HCL 10MG/2ML VIAL IV SCH (21:52)
[2018-05-14] MEDS: CEFTRIAXONE 1 G PREMIX 50 ML IV SCH (22:14)
[2018-05-14] MEDS: PANTOPRAZOLE SODIUM 40 MG/VIAL IV SCH (22:14)
[2018-05-15] VITALS (94 sets, daily range): BP systolic 64–141; BP diastolic 22–103
[2018-05-15] MEDS: DOPAMINE 400MG PREMIX 250 ML IV PRN (00:11)
[2018-05-15] MEDS: LACTULOSE 20G/30ML UDC PO SCH ×5 (01:05→23:23)
[2018-05-15] MEDS: OCTREOTIDE 1,000 MCG in SODIUM CHLORIDE 0.9% 100 ML IV SCH (06:04)
[2018-05-15] MEDS: METOCLOPRAMIDE HCL 10MG/2ML VIAL IV SCH ×3 (06:04→23:20)
[2018-05-15 07:09] LABS: HEMATOCRIT. 26.9 % (42.0-52.0); HEMOGLOBIN. 9.2 g/dL (14.0-18.0); MEAN CORPUSCULAR HEMOGLOBIN 35.3 pg (28.0-32.0); MEAN CORPUSCULAR VOLUME 103.7 fL (80.0-94.0); MEAN PLATELET VOLUME 9.2 fl (7.4-10.4); RED CELL DISTRIBUTION WIDTH 19.1 % (11.6-14.6)
[2018-05-15 07:34] LABS: BG BASE EXCESS -6.9 mmol/L (-2.0-2.0); BG DEOXYHEMOGLOBIN 6.5 % (0.0-5.0); BG HCO3 ACT 17.6 mmol/L (22.0-26.0); BG METHEMOGLOBIN 0.1 % (0.0-1.5); BG OXYGEN SATURATION 93.4 % (92.0-98.5); BG OXYHEMOGLOBIN 92.4 % (94.0-97.0); BG PCO2 31.4 mmHg (35.0-45.0); BG PH 7.367 (7.350-7.450); BG PO2 75.1 mmHg (75.0-100.0); BG SAMPLE SITE RIGHT BRACHIAL; BG TIDAL VOLUME(mL) 600 mL; BG TOTAL HEMOGLOBIN 8.9 g/dL (12.0-18.0); BG VENT MODE VENT - A/C; BG VENT RATE 24 set
[2018-05-15 07:58] LABS: PLATELET 35 x1000/uL (130-400)
[2018-05-15] MEDS: CALCIUM CARBONATE 1250MG TABLET (500MG ELEMENTAL CALCIUM) PO SCH ×3 (08:20→18:20)
[2018-05-15] MEDS: SIMETHICONE 80MG TABLET CHEW PO SCH ×4 (08:50→19:58)
[2018-05-15] MEDS: MIDODRINE HCL 5MG TABLET PO SCH ×3 (09:00→17:00)
[2018-05-15 09:17] LABS: NUCLEATED RED BLOOD CELLS 1 /100 WBC
[2018-05-15] MEDS: PANTOPRAZOLE SODIUM 40 MG/VIAL IV SCH ×2 (09:19→21:00)
[2018-05-15 09:27] LABS: PLATELET ESTIMATE MARKEDLY DECREASED
[2018-05-15] MEDS: DOPAMINE 800MG PREMIX 250 ML IV PRN ×5 (09:35→22:38)
[2018-05-15 09:46] LABS: INR 2.6; PARTIAL THROMBOPLASTIN TIME 45.9 sec (23.4-31.0); PROTHROMBIN TIME 25.4 sec (9.1-11.1)
[2018-05-15] MEDS ORDERED: CEFEPIME 1,000 MG in DEXTROSE 5% WATER 50 ML IV SCH (11:00)
[2018-05-15] MEDS ORDERED: IPRATROPIUM/ALBUTEROL 0.5-3(2.5)MG/3ML NEB HHN PRN (11:15)
[2018-05-15 13:44] LABS: HEMOGLOBIN 9.7 g/dL (14.0-18.0)
[2018-05-15] MEDS: CEFEPIME 2,000 MG in DEXT 5% WATER 100 ML IV SCH (17:02)
[2018-05-15] MEDS: METRONIDAZOLE 500 MG PREMIX 100 ML IV SCH ×2 (17:02→21:00)
[2018-05-15] MEDS ORDERED: VANCOMYCIN 1250MG in DEXTROSE 5% WATER 250ML IV NR (18:00)
[2018-05-15 18:20] LABS: HEMATOCRIT 27.2 % (42.0-52.0); HEMOGLOBIN 9.4 g/dL (14.0-18.0)
[2018-05-15] MEDS: MVI, ADULT NO.1 10 ML, FOLIC ACID 1 MG, THIAMINE HCL 100 MG in DEXT 5%/0.9% NACL 1,000 ML IV SCH ×4 (19:22)
[2018-05-15] MEDS: LORAZEPAM 2MG/ML CPJ IV PRN (20:37)
[2018-05-15] MEDS: VASOPRESSIN 10 UNIT in SODIUM CHLORIDE 0.9% 99.5 ML IV PRN (23:45)
[2018-05-16] VITALS (104 sets, daily range): BP systolic 61–125; BP diastolic 25–102
[2018-05-16] MEDS: LORAZEPAM 2MG/ML CPJ IV PRN ×3 (00:27→16:38)
[2018-05-16] MEDS: PHENYLEPHRINE 40 MG in DEXT 5% WATER 246 ML IV PRN ×2 (01:19→07:03)
[2018-05-16] MEDS: METRONIDAZOLE 500 MG PREMIX 100 ML IV SCH ×3 (02:01→17:53)
[2018-05-16] MEDS: DOPAMINE 800MG PREMIX 250 ML IV PRN ×3 (02:17→20:34)
[2018-05-16] MEDS: DIPHENHYDRAMINE 50MG/ML VIAL IV PRN (02:18)
[2018-05-16] MEDS: VASOPRESSIN 10 UNIT in SODIUM CHLORIDE 0.9% 99.5 ML IV PRN ×5 (03:12→21:06)
[2018-05-16 06:13] LABS: PROTHROMBIN TIME 20.2 sec (9.1-11.1)
[2018-05-16 06:15] LABS: HEMATOCRIT. 23.6 % (42.0-52.0); HEMOGLOBIN. 8.3 g/dL (14.0-18.0); MEAN CORPUSCULAR HEMOGLOBIN 37.2 pg (28.0-32.0); MEAN CORPUSCULAR VOLUME 105.9 fL (80.0-94.0); RED BLOOD CELL COUNT 2.23 mill/uL (4.7-6.1)
[2018-05-16 06:20] LABS: CHLORIDE 104 mEq/L (98-107)
[2018-05-16] MEDS: LACTULOSE 20G/30ML UDC PO SCH ×3 (07:45→20:21)
[2018-05-16] MEDS: SIMETHICONE 80MG TABLET CHEW PO SCH ×4 (07:46→20:21)
[2018-05-16] MEDS: CALCIUM CARBONATE 1250MG TABLET (500MG ELEMENTAL CALCIUM) PO SCH ×3 (07:46→16:15)
[2018-05-16] MEDS: MIDODRINE HCL 5MG TABLET PO SCH ×3 (07:46→16:15)
[2018-05-16 08:24] LABS: PLATELET ESTIMATE MARKEDLY DECREASED
[2018-05-16 08:29] LABS: PLATELET 49 x1000/uL (130-400)
[2018-05-16] MEDS: METOCLOPRAMIDE HCL 10MG/2ML VIAL IV SCH ×2 (08:42→16:33)
[2018-05-16] MEDS: PANTOPRAZOLE SODIUM 40 MG/VIAL IV SCH ×2 (08:42→20:21)
[2018-05-16] MEDS: IPRATROPIUM/ALBUTEROL 0.5-3(2.5)MG/3ML NEB HHN SCH ×4 (08:45→19:59)
[2018-05-16 08:47] LABS: BG BASE EXCESS -7.1 mmol/L (-2.0-2.0); BG CARBOXYHEMOGLOBIN 2.6 % (0.5-1.5); BG DEOXYHEMOGLOBIN 14.9 % (0.0-5.0); BG FRACTION INSPIRED OXYGEN 100; BG HCO3 ACT 18.1 mmol/L (22.0-26.0); BG METHEMOGLOBIN 0.4 % (0.0-1.5); BG OXYGEN SATURATION 84.6 % (92.0-98.5); BG OXYHEMOGLOBIN 82.1 % (94.0-97.0); BG PH 7.331 (7.350-7.450); BG PO2 58.6 mmHg (75.0-100.0); BG SAMPLE SITE RIGHT BRACHIAL; BG TIDAL VOLUME(mL) 600 mL; BG VENT MODE VENT - A/C; BG VENT RATE 24 set
[2018-05-16] MEDS: PHENYLEPHRINE 80 MG in DEXT 5% WATER 492 ML IV PRN ×2 (11:27→16:33)
[2018-05-16] MEDS: OCTREOTIDE 1,000 MCG in SODIUM CHLORIDE 0.9% 100 ML IV SCH (12:20)
[2018-05-16] MEDS: MVI, ADULT NO.1 10 ML, FOLIC ACID 1 MG, THIAMINE HCL 100 MG in DEXT 5%/0.9% NACL 1,000 ML IV SCH ×8 (13:22→23:06)
[2018-05-16] MEDS: CEFEPIME 2,000 MG in DEXT 5% WATER 100 ML IV SCH (16:33)
[2018-05-16] MEDS: FLUCONAZOLE 200 MG/100ML BAG 100 ML IV SCH (16:34)
[2018-05-16 18:40] LABS: HEMATOCRIT 23.7 % (42.0-52.0); HEMOGLOBIN 8.1 g/dL (14.0-18.0)
[2018-05-17] VITALS (95 sets, daily range): BP systolic 42–114; BP diastolic 22–57
[2018-05-17] MEDS: LACTULOSE 20G/30ML UDC PO SCH ×4 (01:13→20:00)
[2018-05-17] MEDS: METOCLOPRAMIDE HCL 10MG/2ML VIAL IV SCH ×4 (01:13→23:15)
[2018-05-17] MEDS: VASOPRESSIN 10 UNIT in SODIUM CHLORIDE 0.9% 99.5 ML IV PRN ×6 (01:37→23:36)
[2018-05-17] MEDS: PHENYLEPHRINE 80 MG in DEXT 5% WATER 492 ML IV PRN ×4 (01:38→16:31)
[2018-05-17] MEDS: LORAZEPAM 2MG/ML CPJ IV PRN (02:16)
[2018-05-17] MEDS: METRONIDAZOLE 500 MG PREMIX 100 ML IV SCH ×3 (02:51→18:00)
[2018-05-17] MEDS: IPRATROPIUM/ALBUTEROL 0.5-3(2.5)MG/3ML NEB HHN SCH ×6 (03:54→20:22)
[2018-05-17] MEDS: DOPAMINE 800MG PREMIX 250 ML IV PRN ×8 (04:45→21:52)
[2018-05-17 06:27] LABS: HEMATOCRIT. 25.1 % (42.0-52.0); HEMOGLOBIN. 8.4 g/dL (14.0-18.0); MEAN CORPUSCULAR HEMOGLOBIN 36.5 pg (28.0-32.0); MEAN CORPUSCULAR VOLUME 108.9 fL (80.0-94.0); MEAN PLATELET VOLUME 9.3 fl (7.4-10.4); RED BLOOD CELL COUNT 2.31 mill/uL (4.7-6.1); RED CELL DISTRIBUTION WIDTH 21.3 % (11.6-14.6)
[2018-05-17 06:49] LABS: CHLORIDE 103 mEq/L (98-107)
[2018-05-17 07:01] LABS: PLATELET 36 x1000/uL (130-400)
[2018-05-17 07:53] LABS: NUCLEATED RED BLOOD CELLS 4 /100 WBC
[2018-05-17 07:54] LABS: PLATELET ESTIMATE MARKEDLY DECREASED
[2018-05-17] MEDS: CALCIUM CARBONATE 1250MG TABLET (500MG ELEMENTAL CALCIUM) PO SCH ×3 (08:20→18:20)
[2018-05-17] MEDS: SIMETHICONE 80MG TABLET CHEW PO SCH ×4 (08:50→20:41)
[2018-05-17 08:57] LABS: BG BASE EXCESS -15.1 mmol/L (-2.0-2.0); BG CARBOXYHEMOGLOBIN 2.8 % (0.5-1.5); BG FRACTION INSPIRED OXYGEN 100; BG OXYGEN SATURATION 80.2 % (92.0-98.5); BG OXYHEMOGLOBIN 77.2 % (94.0-97.0); BG PO2 58.8 mmHg (75.0-100.0); BG SAMPLE SITE LEFT RADIAL; BG TIDAL VOLUME(mL) 600 mL; BG TOTAL HEMOGLOBIN 8.2 g/dL (12.0-18.0); BG VENT MODE VENT - A/C; BG VENT RATE 24 set
[2018-05-17] MEDS: MIDODRINE HCL 5MG TABLET PO SCH ×3 (09:00→17:00)
[2018-05-17] MEDS ORDERED: SODIUM BICARBONATE 8.4% 1 MEQ/ML 50ML SYR IV NR (09:00)
[2018-05-17] MEDS: PANTOPRAZOLE SODIUM 40 MG/VIAL IV SCH ×2 (14:57→21:11)
[2018-05-17] MEDS: CEFEPIME 2,000 MG in DEXT 5% WATER 100 ML IV SCH (15:39)
[2018-05-17] MEDS: FLUCONAZOLE 200 MG/100ML BAG 100 ML IV SCH (16:20)
[2018-05-17] MEDS: MVI, ADULT NO.1 10 ML, FOLIC ACID 1 MG, THIAMINE HCL 100 MG in DEXT 5%/0.9% NACL 1,000 ML IV SCH ×4 (17:41)
[2018-05-18] VITALS (103 sets, daily range): BP systolic 33–117; BP diastolic 12–70
[2018-05-18] MEDS: DOPAMINE 800MG PREMIX 250 ML IV PRN ×8 (00:16→21:54)
[2018-05-18] MEDS: PHENYLEPHRINE 80 MG in DEXT 5% WATER 492 ML IV PRN ×3 (00:16→15:24)
[2018-05-18] MEDS: IPRATROPIUM/ALBUTEROL 0.5-3(2.5)MG/3ML NEB HHN SCH ×5 (00:23→16:15)
[2018-05-18] MEDS: OCTREOTIDE 1,000 MCG in SODIUM CHLORIDE 0.9% 100 ML IV SCH (01:53)
[2018-05-18] MEDS: LACTULOSE 20G/30ML UDC PO SCH ×4 (02:00→20:00)
[2018-05-18] MEDS: VASOPRESSIN 10 UNIT in SODIUM CHLORIDE 0.9% 99.5 ML IV PRN ×4 (03:40→18:08)
[2018-05-18] MEDS: METRONIDAZOLE 500 MG PREMIX 100 ML IV SCH ×3 (03:40→18:44)
[2018-05-18] MEDS: CALCIUM CARBONATE 1250MG TABLET (500MG ELEMENTAL CALCIUM) PO SCH ×3 (08:20→18:03)
[2018-05-18] MEDS: PANTOPRAZOLE SODIUM 40 MG/VIAL IV SCH ×2 (08:21→21:00)
[2018-05-18] MEDS: METOCLOPRAMIDE HCL 10MG/2ML VIAL IV SCH ×2 (08:21→16:42)
[2018-05-18] MEDS: MIDODRINE HCL 5MG TABLET PO SCH ×3 (08:21→16:43)
[2018-05-18] MEDS: SIMETHICONE 80MG TABLET CHEW PO SCH ×4 (08:22→21:00)
[2018-05-18] MEDS ORDERED: VANCOMYCIN 1 G PREMIX 200 ML IV SCH (13:00)
[2018-05-18] MEDS: CEFEPIME 2,000 MG in DEXT 5% WATER 100 ML IV SCH (16:42)
[2018-05-18] MEDS: FLUCONAZOLE 200 MG/100ML BAG 100 ML IV SCH (17:00)
[2018-05-18] MEDS: MVI, ADULT NO.1 10 ML, FOLIC ACID 1 MG, THIAMINE HCL 100 MG in DEXT 5%/0.9% NACL 1,000 ML IV SCH ×4 (17:07)
[2018-05-18] MEDS ORDERED: MORPHINE SULFATE 100 MG in DEXT 5% WATER 90 ML IV PRN (22:30)
[2018-05-19] MEDS: METOCLOPRAMIDE HCL 10MG/2ML VIAL IV SCH
[2018-05-19] MEDS ORDERED: MORPHINE SULFATE 250 MG in DEXT 5% WATER 240 ML IV PRN (00:30)
[2018-05-19] MEDS: OCTREOTIDE 1,000 MCG in SODIUM CHLORIDE 0.9% 100 ML IV SCH (02:00)
[2018-05-19] MEDS: LACTULOSE 20G/30ML UDC PO SCH (02:00)
[2018-05-19] MEDS: METRONIDAZOLE 500 MG PREMIX 100 ML IV SCH (02:52)
== END 2018-05-19 07:03 | disposition expired | DRG 720 ==
LOC: ER 15:43 → 3WST 17:38 → EDBEDREQ 17:43 → ENRESERV 18:49 → 7WST 05-12 13:20 → CVICU 05-14 17:41
PROVIDERS: ADMIT Internal Medicine; ATTEND Internal Medicine
PROC: 5A1955Z Respiratory Ventilation, Greater than 96 Consecutive Hours (ICD-10-PCS; 2018-05-04)
PROC: 30233R1 Transfusion of Nonautologous Platelets into Peripheral Vein, Percutaneous Approach (ICD-10-PCS; 2018-05-04)
PROC: 30233L1 Transfusion of Nonautologous Fresh Plasma into Peripheral Vein, Percutaneous Approach (ICD-10-PCS; 2018-05-06)
PROC: 30233K1 Transfusion of Nonautologous Frozen Plasma into Peripheral Vein, Percutaneous Approach (ICD-10-PCS; 2018-05-06)
PROC: 0W9G3ZZ Drainage of Peritoneal Cavity, Percutaneous Approach (ICD-10-PCS; principal; 2018-05-09)
PROC: 5A1D70Z Performance of Urinary Filtration, Intermittent, Less than 6 Hours Per Day (ICD-10-PCS; 2018-05-11)
PROC: 02HV33Z Insertion of Infusion Device into Superior Vena Cava, Percutaneous Approach (ICD-10-PCS; 2018-05-11)
PROC: B548ZZA Ultrasonography of Superior Vena Cava, Guidance (ICD-10-PCS; 2018-05-11)
PROC: B5181ZA Fluoroscopy of Superior Vena Cava using Low Osmolar Contrast, Guidance (ICD-10-PCS; 2018-05-11)
PROC: 5A1D70Z Performance of Urinary Filtration, Intermittent, Less than 6 Hours Per Day (ICD-10-PCS; 2018-05-12)
PROC: 5A12012 Performance of Cardiac Output, Single, Manual (ICD-10-PCS; 2018-05-14)
PROC: 0BH17EZ Insertion of Endotracheal Airway into Trachea, Via Natural or Artificial Opening (ICD-10-PCS; 2018-05-14)
PROC: 5A1D70Z Performance of Urinary Filtration, Intermittent, Less than 6 Hours Per Day (ICD-10-PCS; 2018-05-15)
DX: A41.9 Sepsis, unspecified organism (principal); J96.00 Acute respiratory failure, unspecified whether with hypoxia or hypercapnia; J69.0 Pneumonitis due to inhalation of food and vomit; R65.21 Severe sepsis with septic shock; E43 Unspecified severe protein-calorie malnutrition; D61.818 Other pancytopenia; K29.71 Gastritis, unspecified, with bleeding; K76.6 Portal hypertension; I46.9 Cardiac arrest, cause unspecified; Z66 Do not resuscitate; E83.51 Hypocalcemia; D68.9 Coagulation defect, unspecified; K72.90 Hepatic failure, unspecified without coma; N17.9 Acute kidney failure, unspecified; E87.1 Hypo-osmolality and hyponatremia; K70.31 Alcoholic cirrhosis of liver with ascites; N50.89 Other specified disorders of the male genital organs; R23.8 Other skin changes; Y90.0 Blood alcohol level of less than 20 mg/100 ml; N43.3 Hydrocele, unspecified; N39.0 Urinary tract infection, site not specified; I11.0 Hypertensive heart disease with heart failure; I27.20 Pulmonary hypertension, unspecified; L03.115 Cellulitis of right lower limb; F10.239 Alcohol dependence with withdrawal, unspecified; I50.32 Chronic diastolic (congestive) heart failure; R26.2 Difficulty in walking, not elsewhere classified; K56.7 Ileus, unspecified; K80.21 Calculus of gallbladder without cholecystitis with obstruction; N40.0 Benign prostatic hyperplasia without lower urinary tract symptoms; Z78.1 Physical restraint status; Z82.49 Family history of ischemic heart disease and other diseases of the circulatory system; Z83.3 Family history of diabetes mellitus; Z79.899 Other long term (current) drug therapy; Z68.39 Body mass index [BMI] 39.0-39.9, adult
CPT/HCPCS: 36415; 36430; 36556; 36600; 49083; 71045; 74018; 76700; 76705; 76870; 76937; 77001; 80048; 80076; 80202; 82140; 82248; 82330; 82375; 82570; 82805; 82962; 83735; 84100; 84300; 85014; 85018; 86850; 86900; 86920; 86927; 87070; 87077; 92950; 93005; 93306; 93970; 93976; 94002; 94003; 94640; 96365; 96366; 96367; 96375; 99285; A6261; C1752; C9113; G0482; J0610; J0692; J0696; J1170; J1200; J1265; J1450; J1642; J1940; J1956; J2060; J2274; J2354; J2370; J2405; J2765; J3010; J3370; J3411; J3430; J3490; J7030; J7040; J7042; J7050; J7060; J7620; P9017; P9034; P9041; A4315